=== PATIENT | female | born 1995 | race Caucasian/White ===

== ENCOUNTER 2020-04-16 07:06 | Day surgery (SDC) | payer BC ==
[~2020-04-16 07:06] MED LIST: Lactated Ringers 1,000 ML IV SCH; Lidocaine 1%/Sod Bicarbonate in NS 8.4% 1 ML Syringe IDERM PRN; Sodium Chloride 0.9% 10 ML Syringe FLUSH PRN
[2020-04-16] MEDS ORDERED: Lidocaine 1% with EPINEPHrine 1:100,000 20 ML MDV ONE (07:14)
[2020-04-16] MEDS ORDERED: Clindamycin Phosphate in D5W 900 MG in Premix Bag 1 BAG IV ONE ×2 (07:30)
[2020-04-16] MEDS ORDERED: fentaNYL 100 MCG/2 ML SDV IVPUSH PRN (07:40)
[2020-04-16] MEDS ORDERED: Scopolamine 1.5 MG Transdermal Patch TRDERM ONE (07:40)
[2020-04-16] MEDS ORDERED: diphenhydrAMINE 50 MG/ML SDV IVPUSH PRN (07:40)
--- NOTE | 2020-04-16 07:40 | PCM.PREANE ---
Preanesthetic Assessment - Procedure Proposed Procedure: lap cholecystecomy - Anesthesia/Transfusion/Family Hx Anesthesia History: No Prior Anesthesia Family History of Anesthesia Reaction: No Transfusion History: No Prior Transfusion(s) Intubation History: Unknown - Review of Systems General: No Symptoms Pulmonary: No Symptoms Cardiovascular: No Symptoms Gastrointestinal: No Symptoms Neurological: No Symptoms Other: Reports: None - Physical Assessment NPO Status Date: 04/15/20 NPO Status Time: 22:00 Height: 1.6 m Weight: 67.6 kg Mental Status: Alert & Oriented x3 Airway Class: Mallampati = 2 Dentition: Reports: Normal Dentition (many crooked teeth ) Thyro-Mental Finger Breadths: 3 Mouth Opening Finger Breadths: 3 ROM/Head Extension: Full Lungs: Clear to Auscultation Cardiovascular: Regular Rate, Regular Rhythm - Allergies Allergies/Adverse Reactions: Allergies Allergy/AdvReac Type Severity Reaction Status Date / Time amoxicillin Allergy Rash Verified 04/15/20 14:25 - Blood Blood Available: No - Anesthesia Plan Pre-Op Medication Ordered: None - Acknowledgements Anesthesia Type Planned: General Anesthesia Pt an Appropriate Candidate for the Planned Anesthesia: Yes Alternatives and Risks of Anesthesia Discussed w Pt/Guardian: Yes Pt/Guardian Understands and Agrees with Anesthesia Plan: Yes PreAnesthesia Questionnaire - Past Health History Medical/Surgical History: Denies Medical/Surgical History HEENT History: Reports: Allergic Rhinitis, Impaired Vision Cardiovascular History: Reports: None Respiratory History: Reports: None Gastrointestinal History: Reports: None Genitourinary History: Reports: None Other OB/BYN History: in 2015, pelvic pain Musculoskeletal History: Reports: None Neurological History: Reports: None Psychiatric History: Reports: None Endocrine/Metabolic History: Reports: None Hematologic History: Reports: None Immunologic History: Reports: None Oncologic (Cancer) History: Reports: None Dermatologic History: Reports: None - Past Surgical History Head Surgeries/Procedures: Reports: None HEENT Surgical History: Reports: None Cardiovascular Surgical History: Reports: None Respiratory Surgical History: Reports: None GI Surgical History: Reports: None Female Surgical History: Reports: None Male Surgical History: Reports: None Endocrine Surgical History: Reports: None Neurological Surgical History: Reports: None Musculoskeletal Surgical History: Reports: None Oncologic Surgical History: Reports: None Dermatological Surgical History: Reports: None - SUBSTANCE USE Tobacco Use Status *Q: Current Every Day Tobacco User Days Per Week of Alcohol Use: 2 Number of Drinks Per Day: 3 Total Drinks Per Week: 6 Recreational Drug Use History: No - HOME MEDS Home Medications: Home Meds Cetirizine HCl [Zyrtec] 10 mg PO DAILY PRN 04/15/20 [History] Fexofenadine/Pseudoephedrine [Monica-D 24 Hour Tablet] 1 tab PO DAILY PRN 04/15/20 [History] Ibuprofen 200 - 400 mg PO Q6H PRN 04/15/20 [History] Loratadine [Claritin] 10 mg PO DAILY PRN 04/15/20 [History] Melatonin 10 mg PO BEDTIME 04/15/20 [History] - CURRENT (IN HOUSE) MEDS Current Meds: Current Medications Lactated Ringer's (Ringers, Lactated) 1,000 mls @ 125 mls/hr IV ASDIRECTED DIDIER Stop: 04/16/20 23:00 Clindamycin Phosphate 900 mg/ (Premix) 50 mls @ 100 mls/hr IV ONETIME ONE Stop: 04/16/20 07:59 Lidocaine/Sodium Bicarbonate (Buffered Lidocaine 1% In Ns 8.4%) 0.25 ml IDERM ONETIME PRN PRN Reason: Prior to IV Start Stop: 04/16/20 23:00 Sodium Chloride (Saline Flush) 10 ml FLUSH ASDIRECTED PRN PRN Reason: Keep Vein Open Stop: 04/16/20 23:00 Discontinued Medications Lidocaine/Epinephrine (Xylocaine 1% With Epinephrine 1:100,000) Confirm Administered Dose 20 ml .ROUTE .STK-MED ONE Stop: 04/16/20 07:15
[2020-04-16] MEDS ORDERED: Propofol 200 MG/20 ML SDV ONE (07:45)
[2020-04-16] MEDS ORDERED: fentaNYL 250 MCG/5 ML SDV ONE (07:45)
[2020-04-16] MEDS ORDERED: Ondansetron 4 MG/2 ML SDV ONE (07:46)
[2020-04-16] MEDS ORDERED: Ketorolac 30 MG/ML SDV ONE (07:46)
[2020-04-16] MEDS ORDERED: Dexamethasone 4 MG/ML 5 ML MDV ONE (07:46)
[2020-04-16] MEDS ORDERED: Lidocaine 1% 4 ML ONE (07:46)
[2020-04-16] MEDS ORDERED: Midazolam 1 MG/ML 2 ML SDV ONE (07:46)
[2020-04-16] MEDS ORDERED: Rocuronium 50 MG/5 ML Vial ONE (07:46)
[2020-04-16] MEDS ORDERED: Ketamine 500 mg/10 ML MDV ONE (08:29)
[2020-04-16] MEDS ORDERED: Lactated Ringers 1,000 ML ONE (08:48)
[2020-04-16] MEDS ORDERED: HYDROmorphone 0.5 MG/0.5 ML Syringe ONE (08:52)
--- NOTE | 2020-04-16 09:31 | PCM.PRNOTE ---
- Free Text/Narrative Note: Date: 04/16/2020 Operation: laparoscopic cholecystectomy Surgeon: Ezra Erickson MD Findings: chronic cholecystitis with multiple gallstones. Critical view of safety obtained. Detailed Report: The patient was taken to the operating room and placed in supine position. Timeout was performed, and general endotracheal anesthesia initiated. The abdomen was prepped and draped in usual sterile fashion. Veress needle was placed in the left upper quadrant and pneumoperitoneum was established. A bladed 5 mm trocar was then inserted at the inferior aspect of the umbilicus, and a 5 mm 30 degree laparoscope was inserted into the abdomen. The Veress insertion site was inspected and no inadvertent injury was noted. The needle was removed, and additional ports were placed under laparoscopic vision. 2 additional 5 mm ports were placed in the right upper quadrant, and a 12 mm port was placed in the subxiphoid region. The fundus of the gallbladder was grasped and retracted cephalad. The gallbladder was quite long, and there was noted chronic inflammation and omental adhesions. The infundibulum was identified and cleared, and retracted laterally with the surgeon's left hand. Hook monopolar energy was used to divide the gallbladder's visceral peritoneum overlying the infundibulum and cystic structures. Careful dissection ensued, until the cystic duct and artery were clearly identified and skeletonized. A critical view of safety was obtained. Hemolock clips were placed on the cystic duct and artery, and the structures were transected with laparoscopic scissors. Monopolar energy was then used to dissect the gallbladder off of the liver. There was some bleeding from the edge of the liver near the fundus of the gallbladder, which was controlled with monopolar energy. The gallbladder was then placed in an Endo Catch bag and removed. The dissection field was irrigated and suctioned, and bleeding was controlled with monopolar energy. A piece of Surgicel was also placed in the gallbladder fossa, and hemostasis appeared satisfactory at this point. The 12 mm port site was closed using the laparoscopic suture passer with 0 Vicryl. Other ports were removed under laparoscopic vision, and pneumoperitoneum was released. All incision sites were closed at the level of skin with running subcuticular Vicryl suture. Wounds were dressed with Dermabond. The patient tolerated the procedure well.
--- NOTE | 2020-04-16 09:40 | PCM.POSTAN ---
POST ANESTHESIA ASSESSMENT - MENTAL STATUS Mental Status: Other - VITAL SIGNS Vital Signs: Last Vital Signs 0932 142/86 100, 2 L 84 18 97.5 Temp 36.2 C 04/16/20 07:00 Pulse 90 04/16/20 07:00 Resp 16 04/16/20 07:00 BP 132/96 H 04/16/20 07:00 Pulse Ox 97 04/16/20 07:00 - RESPIRATORY Respiratory Status: Respiratory Rate WNL, Airway Patent, O2 Saturation Stable, Supplemental Oxygen - CARDIOVASCULAR CV Status: Pulse Rate WNL, Blood Pressure Stable - GASTROINTESTINAL GI Status: No Symptoms - PAIN Pain Score: 0 - POST OP HYDRATION Hydration Status: Adequate & Stable
[2020-04-16] MEDS ORDERED: Promethazine 6.25 MG in Sodium Chloride 0.9% 9 ML IV STA (09:43)
[2020-04-16] MEDS ORDERED: Promethazine 25 MG/ML SDV IV ONE (10:00)
--- NOTE | 2020-04-16 11:32 | PCM48HPAN ---
Post Anesthesia Note - EVALUATION WITHIN 48HRS OF ANESTHETIC Vital Signs in Normal Range: Yes Patient Participated in Evaluation: Yes Respiratory Function Stable: Yes Airway Patent: Yes Cardiovascular Function Stable: Yes Hydration Status Stable: Yes Pain Control Satisfactory: Yes Nausea and Vomiting Control Satisfactory: Yes Mental Status Recovered: Yes Vital Signs: Last Vital Signs Temp 36.6 C 04/16/20 11:00 Pulse 90 04/16/20 11:00 Resp 18 04/16/20 11:00 BP 133/92 H 04/16/20 11:00 Pulse Ox 96 04/16/20 11:00
== END 2020-04-16 12:28 | disposition home or self-care (01) ==
LOC: JD.SDS 07:06 → MERGE 07:06 → JD.SDS 12:28
PROVIDERS: ATTEND Surgery
DX: K80.10 Calculus of gallbladder with chronic cholecystitis without obstruction (principal); F17.210 Nicotine dependence, cigarettes, uncomplicated; Z88.1 Allergy status to other antibiotic agents; Z79.899 Other long term (current) drug therapy; Z01.812 Encounter for preprocedural laboratory examination; Z20.828 Contact with and (suspected) exposure to other viral communicable diseases
CPT/HCPCS: 47562; 81025; A9270; J1100; J2001; J2250; J2405; J2550; J2704; J2710; J3010; J3490; J7120; J1170; J1885

== ENCOUNTER 2020-05-27 16:25 | Emergency (ER) | payer BC ==
[2020-05-27] MEDS ORDERED: LORazepam 1 MG Tab PO ONE (16:47)
--- NOTE | 2020-05-27 16:51 | EDM.PDOC ---
ED HPI GENERAL MEDICAL PROBLEM - General Chief Complaint: Behavioral/Psych Stated Complaint: [facility] Time Seen by Provider: 05/27/20 16:30 Source of Information: Reports: Patient History Limitations: Reports: No Limitations, Other (ED vital signs reveal a temp of 98.4, pulse of 85, respiratory rate of 18, blood pressure 128/75, pulse ox 99% on room air.) - History of Present Illness INITIAL COMMENTS - FREE TEXT/NARRATIVE: 24-year-old female presents to the emergency department complaints of dyspnea. Patient states that this has been ongoing for the last couple of weeks. She states she will feel short of breath and feeling like she needs to pass out specifically when she is driving. Patient states when she is at home and she feels this way she will lay on the bathroom floor and try to talk herself out of feeling that way. She states that recently her grandma was diagnosed with terminal cancer, and she has been unhappy with life in general as she states she has a "shitty "job. She states that she attempts to take melatonin 10 mg for sleep however that does not work so she drinks half of a bottle of 750 mL of vodka nightly. She reports that this has been going on for the past several months. She drinks to the point of blacking out. She states she has not had much of an appetite and she feels tired during the day. No significant medical history other than recent laparoscopic cholecystectomy 16 April. Denies any recent fever, chills, vomiting, or diarrhea. - Related Data Allergies Allergy/AdvReac Type Severity Reaction Status Date / Time amoxicillin Allergy Rash Verified 05/27/20 16:32 Home Meds: Home Meds Cetirizine HCl [Zyrtec] 10 mg PO DAILY PRN 04/15/20 [History] Fexofenadine/Pseudoephedrine [Monica-D 24 Hour Tablet] 1 tab PO DAILY PRN 04/15/20 [History] Ibuprofen 200 - 400 mg PO Q6H PRN 04/15/20 [History] Loratadine [Claritin] 10 mg PO DAILY PRN 04/15/20 [History] Melatonin 10 mg PO BEDTIME 04/15/20 [History] oxyCODONE 5 mg PO Q4H PRN #20 tab 04/16/20 [Rx] Magnesium Oxide 400 mg PO DAILY #10 tablet 05/27/20 [Rx] Past Medical History - Past Health History Medical/Surgical History: Denies Medical/Surgical History HEENT History: Reports: Allergic Rhinitis, Impaired Vision Cardiovascular History: Reports: None Respiratory History: Reports: None Gastrointestinal History: Reports: None Genitourinary History: Reports: None Other [employer] History: in 2015, pelvic pain Musculoskeletal History: Reports: None Neurological History: Reports: None Psychiatric History: Reports: None Endocrine/Metabolic History: Reports: None Hematologic History: Reports: None Immunologic History: Reports: None Oncologic (Cancer) History: Reports: None Dermatologic History: Reports: None - Past Surgical History Head Surgeries/Procedures: Reports: None HEENT Surgical History: Reports: None Cardiovascular Surgical History: Reports: None Respiratory Surgical History: Reports: None GI Surgical History: Reports: Cholecystectomy Female Surgical History: Reports: None Endocrine Surgical History: Reports: None Neurological Surgical History: Reports: None Musculoskeletal Surgical History: Reports: None Oncologic Surgical History: Reports: None Dermatological Surgical History: Reports: None Social & Family History - Family History Family Medical History: No Pertinent Family History - Tobacco Use Tobacco Use Status *Q: Current Every Day Tobacco User Years of Tobacco use: 5 Packs/Tins Daily: 0.5 - Caffeine Use Caffeine Use: Reports: Coffee, Energy Drinks, Soda, Tea - Recreational Drug Use Recreational Drug Use: No ED ROS GENERAL - Review of Systems Review Of Systems: Comprehensive ROS is negative, except as noted in HPI. ED EXAM, GENERAL - Physical Exam Exam: See Below Exam Limited By: No Limitations General Appearance: Alert, WD/WN, Anxious Eye Exam: Bilateral Eye: PERRL Ears: Hearing Grossly Normal Nose: Normal Inspection Throat/Mouth: Normal Inspection, Normal Voice, No Airway Compromise Head: Atraumatic, Normocephalic Neck: Normal Inspection, Supple, Non-Tender, Full Range of Motion Respiratory/Chest: No Respiratory Distress, Lungs Clear, Normal Breath Sounds, No Accessory Muscle Use, Chest Non-Tender Cardiovascular: Normal Peripheral Pulses, Regular Rate, Rhythm, No Edema, No Murmur Peripheral Pulses: 2+: Radial (L), Radial (R) GI/Abdominal: Normal Bowel Sounds, Soft, Non-Tender, No Distention (Female) Exam: Deferred Rectal (Female) Exam: Deferred Back Exam: Normal Inspection, Full Range of Motion Extremities: Normal Inspection, Normal Range of Motion, Non-Tender, No Pedal Edema, Normal Capillary Refill Neurological: Alert, Oriented, Normal Cognition Psychiatric: Anxious Skin Exam: Warm, Dry, Intact, Normal Color, No Rash Lymphatic: No Adenopathy #1 Interpretation EKG Date: 05/27/20 Time: 17:11 Rhythm: NSR Rate (Beats/Min): 91 Venus: Normal P-Wave: Present QRS: Normal ST-T: Normal QT: Normal (Per Dr. Dyer interpretation: Normal sinus rhythm) Course - Vital Signs Text/Narrative:: 24 old female presenting to the ER with complaints of shortness of breath. She states this has been ongoing for several weeks where she develops shortness of breath and feeling like she needs to pass out. She also becomes nauseated with this feeling. Denies complaints of numbness or tingling into her hands. Has not been sleeping well and has been using vodka, one half of a 750 mL bottle, per night until she blacks out and is able to sleep. Does admit to a little bit of increased stress in her life as her grandma was just diagnosed with terminal cancer and she has been unhappy with her job. Upon assessment patient is visibly anxious and dyspneic. I have ordered for the patient to have a milligram of Ativan p.o. I have also ordered a chest x-ray, EKG, troponin, CBC, CMP, magnesium level, and a TSH level. Last Recorded V/S: Last Vital Signs Temp 98.4 F 05/27/20 16:30 Pulse 85 05/27/20 16:30 Resp 18 05/27/20 16:30 BP 128/75 05/27/20 16:30 Pulse Ox 99 05/27/20 16:30 - Orders/Labs/Meds Orders: Active Orders 24 hr Category Date Time Status EKG Documentation Completion [RC] STAT Care 05/27/20 16:46 Active Chest 1V Frontal [CR] Stat Exams 05/27/20 16:46 Taken UA RFX WANDER AND CULT IF INDIC [URIN] Stat Lab 05/27/20 16:46 Ordered Labs: Laboratory Tests 05/27/20 05/27/20 Range/Units 17:05 17:05 WBC 7.42 (3.98-10.04) K/mm3 RBC 4.78 (3.98-5.22) M/mm3 Hgb 12.9 (11.2-15.7) gm/dl Hct 40.6 (34.1-44.9) % MCV 84.9 (79.4-94.8) fl MCH 27.0 (25.6-32.2) pg MCHC 31.8 L (32.2-35.5) g/dl RDW Std Deviation 42.7 (36.4-46.3) fL Plt Count 312 (182-369) K/mm3 MPV 9.5 (9.4-12.3) fl Neut % (Auto) 56.4 (34.0-71.1) % Lymph % (Auto) 30.2 (19.3-51.7) % Emery % (Auto) 8.8 (4.7-12.5) % Eos % (Auto) 4.0 (0.7-5.8) Baso % (Auto) 0.5 (0.1-1.2) % Neut # (Auto) 4.18 (1.56-6.13) K/mm3 Lymph # (Auto) 2.24 (1.18-3.74) K/mm3 Emery # (Auto) 0.65 H (0.24-0.36) K/mm3 Eos # (Auto) 0.30 (0.04-0.36) K/mm3 Baso # (Auto) 0.04 (0.01-0.08) K/mm3 Sodium 140 (136-145) mEq/L Potassium 3.4 L (3.5-5.1) mEq/L Chloride 101 (98-107) mEq/L Carbon Dioxide 19 L (21-32) mEq/L Anion Gap 23.4 H (5-15) BUN 9 (7-18) mg/dL Creatinine 0.8 (0.55-1.02) mg/dL Est Cr Clr Drug Dosing 90.47 mL/min Estimated GFR (MDRD) > 60 (>60) mL/min BUN/Creatinine Ratio 11.3 L (14-18) Glucose 114 H (74-106) mg/dL Calcium 10.0 (8.5-10.1) mg/dL Magnesium 1.4 L (1.8-2.4) mg/dl Total Bilirubin 0.3 (0.2-1.0) mg/dL AST 18 (15-37) U/L ALT 24 (14-59) U/L Alkaline Phosphatase 89 (46-116) U/L Troponin I < 0.017 (0.00-0.056) ng/mL C-Reactive Protein 0.2 (<1.0) mg/dL Total Protein 8.4 H (6.4-8.2) g/dl Albumin 4.3 (3.4-5.0) g/dl Globulin 4.1 gm/dL Albumin/Globulin Ratio 1.1 (1-2) TSH 3rd Generation 0.813 (0.358-3.74) uIU/mL Meds: Medications Discontinued Medications Generic Name Dose Route Start Last Admin Trade Name Freq PRN Reason Stop Dose Admin Lorazepam 1 mg 05/27/20 16:47 05/27/20 17:13 Ativan PO 05/27/20 16:48 1 mg ONETIME ONE Administration Magnesium Oxide 800 mg 05/27/20 17:59 Magnesium Oxide PO 05/27/20 18:00 ONETIME ONE - Re-Assessments/Exams Free Text/Narrative Re-Assessment/Exam: 05/27/20 18:01 CBC is unremarkable, chemistry reveals a potassium of 3.4, carbon dioxide 19, anion gap is elevated at 23.4 however patient is not nauseated or vomiting and has been drinking large quantities of alcohol, glucose is 114, magnesium is 1.4, troponin less than 0.017, C-reactive protein 8.2, TSH 0.813 Patient states she is feeling less anxious from the Ativan, however I do not feel comfortable sending her home with a prescription for Ativan as I am not con vinced that she will stop drinking. I have ordered for the patient to receive 800 mg of magnesium p.o. x1 now. The patient will be discharged home with recommendations that she follows up with [facility] and la[facility]. She also needs to schedule an appointment with her primary care physician this week. Departure - Departure Time of Disposition: 18:02 Disposition: Home, Self-Care 01 Condition: Fair Clinical Impression: Anxiety, Alcohol abuse - Discharge Information Prescriptions: Magnesium Oxide 400 mg PO DAILY #10 tablet Instructions: Alcohol Use Disorder, Alcohol Abuse and Nutrition, Managing Anxiety, Adult, Finding Treatment for Addiction Referrals: PCP,None [Primary Care Provider] - Forms: ED Department Discharge Additional Instructions: You were seen in the emergency department today with complaints of shortness of breath and anxiety type symptoms. A chest x-ray, an EKG and lab work were all completed and we have ruled out any cardiac origin for your shortness of breath. Your thyroid levels are normal. You were slightly dehydrated so you need to drink more water. Medium level was low so you were given magnesium tablets to supplement. I have also sent prescription to your pharmacy for magnesium tablets. You need to take 2 tablets daily for the next 3 days and then 1 tablet until gone. Stop drinking alcohol as this only contributes to your anxiety, sleep problems, dehydration and low magnesium levels. [facility] The phone number is [phone]. Also recommend you join Alcoholics Anonymous. You also need to follow-up with your primary care provider. A list of providers has been sent with your discharge information. Schedule an appointment as soon as possible. Should your condition worsen or change please return to the emergency department. Sepsis Event Note (ED) - Evaluation Sepsis Screening Result: No Definite Risk - Focused Exam Vital Signs: Vital Signs Temp Pulse Resp BP Pulse Ox 05/27/20 16:30 98.4 F 85 18 128/75 99 - My Orders Last 24 Hours: My Active Orders 05/27/20 16:46 EKG Documentation Completion [RC] STAT Chest 1V Frontal [CR] Stat UA RFX WANDER AND CULT IF INDIC [URIN] Stat - Assessment/Plan Last 24 Hours: My Active Orders 05/27/20 16:46 EKG Documentation Completion [RC] STAT Chest 1V Frontal [CR] Stat UA RFX WANDER AND CULT IF INDIC [URIN] Stat
[2020-05-27] MEDS ORDERED: Magnesium Oxide 400 MG Tab PO ONE (17:59)
--- NOTE | 2020-05-27 18:09 | CR ---
Chest: Portable view of the chest was obtained. Comparison: No previous chest imaging. Heart size and mediastinum are normal. Lungs are clear with no acute parenchymal change. Bony structures are grossly intact. Impression: 1. Nothing acute is appreciated on portable chest x-ray. Diagnostic code #1
== END 2020-05-27 18:36 | disposition home or self-care (01) ==
LOC: JD.ED 16:25
DX: F41.9 Anxiety disorder, unspecified (principal); F10.10 Alcohol abuse, uncomplicated; Z72.0 Tobacco use; Z88.0 Allergy status to penicillin
CPT/HCPCS: 36415; 71045; 80053; 83735; 84443; 84484; 85025; 86140; 93005; 99285; A9270; 93010; 99284

== ENCOUNTER 2020-10-15 16:43 | Emergency (ER) | payer BC ==
--- NOTE | 2020-10-15 17:33 | EDM.PDOC ---
ED HPI GENERAL MEDICAL PROBLEM - General Chief Complaint: Abdominal Pain Stated Complaint: ABDOMINAL PAIN/DIZZY/LIGHTHEADED Time Seen by Provider: 10/15/20 17:20 Source of Information: Reports: Patient History Limitations: Reports: No Limitations - History of Present Illness INITIAL COMMENTS - FREE TEXT/NARRATIVE: 25 yo F presents with several symptoms. She states she's felt dizzy/lightheaded x 2 weeks. Feels like she could pass out but no syncope. Fairly constant, no exacerbating/relieving factors. No vomiting. She has had a couple of episodes of diarrhea daily. In addition, she has had some RUQ pain, sharp, x 3 days. It is better today. Hx cholecystectomy several months ago, had not had recurrence of pain until now. No fever. She has felt somewhat anxious/jittery, states her PCP told her it was anxiety, has been taking an occasional hydroxyzine which is no longer providing much relief. Anxious about her job, feels better now that she is planning to quit and has a new job lined up. States she has a safe living situation. Denies possibility of , is on menses now. Occasional ETOH use, not daily, no drug use. Right Upper Abdomen Pain Score (Numeric/FACES): 6 - Related Data Allergies Allergy/AdvReac Type Severity Reaction Status Date / Time amoxicillin Allergy Rash Verified 10/15/20 17:10 Home Meds: Home Meds Cetirizine HCl [Zyrtec] 10 mg PO ASDIRECTED PRN 04/15/20 [History] Fexofenadine/Pseudoephedrine [Monica-D 24 Hour Tablet] 1 tab PO DAILY PRN 04/15/20 [History] Ibuprofen 200 - 400 mg PO Q6H PRN 04/15/20 [History] Loratadine [Claritin] 10 mg PO DAILY PRN 04/15/20 [History] Melatonin 10 mg PO BEDTIME 04/15/20 [History] hydrOXYzine HCL [Hydroxyzine HCl] 50 mg PO ASDIRECTED 10/15/20 [History] Past Medical History - Past Health History Medical/Surgical History: Denies Medical/Surgical History HEENT History: Reports: Allergic Rhinitis, Impaired Vision Cardiovascular History: Reports: None Respiratory History: Reports: None Gastrointestinal History: Reports: None Genitourinary History: Reports: None Other DBA MANAGER History: in 2015, pelvic pain Musculoskeletal History: Reports: None Neurological History: Reports: None Psychiatric History: Reports: None Endocrine/Metabolic History: Reports: None Hematologic History: Reports: None Immunologic History: Reports: None Oncologic (Cancer) History: Reports: None Dermatologic History: Reports: None - Infectious Disease History Infectious Disease History: Reports: None - Past Surgical History Head Surgeries/Procedures: Reports: None HEENT Surgical History: Reports: None Cardiovascular Surgical History: Reports: None Respiratory Surgical History: Reports: None GI Surgical History: Reports: Cholecystectomy Female Surgical History: Reports: None Endocrine Surgical History: Reports: None Neurological Surgical History: Reports: None Musculoskeletal Surgical History: Reports: None Oncologic Surgical History: Reports: None Dermatological Surgical History: Reports: None Social & Family History - Family History Family Medical History: No Pertinent Family History - Tobacco Use Tobacco Use Status *Q: Current Every Day Tobacco User Years of Tobacco use: 6 Packs/Tins Daily: 0.5 - Caffeine Use Caffeine Use: Reports: Soda - Recreational Drug Use Recreational Drug Use: No ED ROS GENERAL - Review of Systems Review Of Systems: See Below Constitutional: Denies: Fever HEENT: Reports: No Symptoms Respiratory: Denies: Shortness of Breath Cardiovascular: Denies: Chest Pain Endocrine: Reports: Fatigue GI/Abdominal: Reports: Abdominal Pain. Denies: Vomiting : Reports: No Symptoms Musculoskeletal: Reports: No Symptoms Skin: Reports: No Symptoms Neurological: Reports: Dizziness Psychiatric: Reports: Anxiety Hematologic/Lymphatic: Reports: No Symptoms Immunologic: Reports: No Symptoms ED EXAM, GENERAL - Physical Exam Exam: See Below Exam Limited By: No Limitations General Appearance: Alert, WD/WN, No Apparent Distress Eye Exam: Bilateral Eye: Normal Inspection Ears: Normal External Exam Nose: Normal Inspection Throat/Mouth: Normal Inspection, Normal Oropharynx, Normal Voice Head: Atraumatic, Normocephalic Neck: Normal Inspection, Supple, Non-Tender Respiratory/Chest: No Respiratory Distress, Lungs Clear, Normal Breath Sounds, Chest Non-Tender Cardiovascular: Normal Peripheral Pulses, Regular Rate, Rhythm, No Edema GI/Abdominal: Soft, Non-Tender Back Exam: Normal Inspection Extremities: Normal Inspection, Normal Range of Motion, No Pedal Edema Neurological: Alert, Oriented, CN II-XII Intact, Normal Cognition, No Motor/Sensory Deficits Psychiatric: Normal Affect, Normal Mood Skin Exam: Warm, Dry, Intact, Normal Color, No Rash Course - Vital Signs Last Recorded V/S: Last Vital Signs Temp 36.6 C 10/15/20 17:16 Pulse 89 10/15/20 17:16 Resp 18 10/15/20 17:16 BP 143/92 H 10/15/20 17:16 Pulse Ox 100 10/15/20 17:16 - Orders/Labs/Meds Orders: Active Orders 24 hr Category Date Time Status EKG 12 Lead [EKG Documentation Completion] [RC] STAT Care 10/15/20 17:32 Active Labs: Laboratory Tests 10/15/20 10/15/20 Range/Units 17:40 17:40 WBC 8.11 (3.98-10.04) K/mm3 RBC 4.36 (3.98-5.22) M/mm3 Hgb 11.9 (11.2-15.7) gm/dl Hct 36.8 (34.1-44.9) % MCV 84.4 (79.4-94.8) fl MCH 27.3 (25.6-32.2) pg MCHC 32.3 (32.2-35.5) g/dl RDW Std Deviation 40.4 (36.4-46.3) fL Plt Count 271 (182-369) K/mm3 MPV 9.7 (9.4-12.3) fl Neut % (Auto) 64.7 (34.0-71.1) % Lymph % (Auto) 24.4 (19.3-51.7) % Bowie % (Auto) 6.7 (4.7-12.5) % Eos % (Auto) 3.5 (0.7-5.8) Baso % (Auto) 0.7 (0.1-1.2) % Neut # (Auto) 5.25 (1.56-6.13) K/mm3 Lymph # (Auto) 1.98 (1.18-3.74) K/mm3 Bowie # (Auto) 0.54 H (0.24-0.36) K/mm3 Eos # (Auto) 0.28 (0.04-0.36) K/mm3 Baso # (Auto) 0.06 (0.01-0.08) K/mm3 Sodium 140 (136-145) mEq/L Potassium 4.0 (3.5-5.1) mEq/L Chloride 103 (98-107) mEq/L Carbon Dioxide 24 (21-32) mEq/L Anion Gap 17.0 H (5-15) BUN 12 (7-18) mg/dL Creatinine 0.8 (0.55-1.02) mg/dL Est Cr Clr Drug Dosing 89.70 mL/min Estimated GFR (MDRD) > 60 (>60) mL/min BUN/Creatinine Ratio 15.0 (14-18) Glucose 102 H (70-99) mg/dL Calcium 9.2 (8.5-10.1) mg/dL Total Bilirubin 0.2 (0.2-1.0) mg/dL AST 15 (15-37) U/L ALT 21 (14-59) U/L Alkaline Phosphatase 74 (46-116) U/L Total Protein 7.8 (6.4-8.2) g/dl Albumin 3.9 (3.4-5.0) g/dl Globulin 3.9 gm/dL Albumin/Globulin Ratio 1.0 (1-2) Lipase 154 (73-393) U/L HCG, Quant < 1.0 mIU/mL - Re-Assessments/Exams Free Text/Narrative Re-Assessment/Exam: 10/15/20 18:33 EKG shows NSR, rate 87, normal axis/intervals, no evidence of acute ischemia or arrhythmia. Labs unremarkable - not , not anemic, LFT's/chem normal. Normal vitals here and well appearing. Advised her to f/u with PCP for further care. Discussed ED return precautions. Departure - Departure Time of Disposition: 18:34 Disposition: Home, Self-Care 01 Clinical Impression: Dizziness, Anxiety Abdominal pain Qualifiers: Abdominal location: right upper quadrant Qualified Code(s): R10.11 - Right upper quadrant pain - Discharge Information Forms: ED Department Discharge Additional Instructions: 1. Follow up with your regular doctor as soon as possible 2. Return to the ED as needed if you have worsening pain, passing out episodes, severe dizziness, fever, difficulty breathing, or other concerning symptoms Sepsis Event Note (ED) - Evaluation Sepsis Screening Result: No Definite Risk - Focused Exam Vital Signs: Vital Signs Temp Pulse Resp BP Pulse Ox 10/15/20 17:16 36.6 C 89 18 143/92 H 100 - My Orders Last 24 Hours: My Active Orders 10/15/20 17:32 EKG 12 Lead [EKG Documentation Completion] [RC] STAT - Assessment/Plan Last 24 Hours: My Active Orders 10/15/20 17:32 EKG 12 Lead [EKG Documentation Completion] [RC] STAT
== END 2020-10-15 18:50 | disposition home or self-care (01) ==
LOC: JD.ED 16:43
DX: R10.11 Right upper quadrant pain (principal); R42 Dizziness and giddiness; F41.9 Anxiety disorder, unspecified; Z72.0 Tobacco use; Z88.0 Allergy status to penicillin
CPT/HCPCS: 36415; 80053; 83690; 84702; 85025; 99283; 99284-25

== ENCOUNTER 2021-04-30 18:14 | Emergency (ER) | payer BC ==
[2021-04-30] MEDS ORDERED: Sodium Chloride 0.9% 10 ML Syringe FLUSH PRN (18:56)
[2021-04-30] MEDS ORDERED: Dicyclomine 10 MG Cap PO ONE (19:08)
[2021-04-30] MEDS ORDERED: Magnesium Citrate Solution 296 ML Bottle PO ONE (20:06)
== END 2021-04-30 20:28 | disposition home or self-care (01) ==
LOC: JD.ED 18:14
DX: K59.09 Other constipation (principal); Z88.0 Allergy status to penicillin; Z72.0 Tobacco use
CPT/HCPCS: 36415; 74019; 80053; 81001; 85025; 86140; 99284; A9270

== ENCOUNTER 2022-03-02 09:25 | Emergency (ER) | payer BC | END 2022-03-02 10:30 | disposition left against medical advice (07) | LOC: JD.ED 09:25 | DX: Z53.21 Procedure and treatment not carried out due to patient leaving prior to being seen by health care provider (principal) ==

== ENCOUNTER 2022-03-02 10:52 | Emergency (ER) | payer BC | END 2022-03-02 13:02 | LOC: JD.ED 10:52 | DX: Z53.21 Procedure and treatment not carried out due to patient leaving prior to being seen by health care provider (principal) ==

== ENCOUNTER 2023-01-09 18:09 | Emergency (ER) | payer BC ==
[2023-01-09] MEDS ORDERED: Sodium Chloride 0.9% 1,000 ML IV ONE ×2 (18:33→19:40)
[2023-01-09] MEDS ORDERED: Metoclopramide 10 MG/2 ML SDV IVPUSH ONE (18:33)
[2023-01-09] MEDS ORDERED: Sodium Chloride 0.9% 10 ML Syringe FLUSH PRN (18:33)
[2023-01-09 18:57] LABS: BASOPHILS ABSOLUTE AUTO 0.1 K/mm3 (0.0-0.2); BASOPHILS PERCENT AUTO 0.7 % (0.0-1.0); EOSINOPHILS ABSOLUTE AUTO 0.1 K/mm3 (0.0-0.4); EOSINOPHILS PERCENT AUTO 1.7 % (0.0-6.0); HEMOGLOBIN 11.8 gm/dl (12.0-16.0); IMMATURE GRAN ABSOLUTE AUTO 0.02 K/mm3 (0.00-0.05); IMMATURE GRAN PERCENT AUTO 0.2 % (0.0-0.4); LYMPHOCYTES ABSOLUTE AUTO 1.5 K/mm3 (1.0-4.8); LYMPHOCYTES PERCENT AUTO 18.1 % (24.0-44.0); MEAN CORPUSCULAR HEMOGLOBIN 26.6 pg (28.0-32.0); MEAN CORPUSCULAR HGB CONC 32.8 g/dl (32.0-36.0); MEAN CORPUSCULAR VOLUME 81.3 fl (83.0-99.0); MONOCYTES ABSOLUTE AUTO 0.6 K/mm3 (0.0-0.8); MONOCYTES PERCENT AUTO 7.1 % (0.0-8.0); NEUTROPHILS ABSOLUTE AUTO 5.9 K/mm3 (1.8-7.7); NEUTROPHILS PERCENT AUTO 72.2 % (41.0-71.0); PLATELET COUNT,PLT 244 K/mm3 (150-400); RED BLOOD CELL COUNT 4.43 M/mm3 (4.10-5.30); WHITE BLOOD CELL COUNT,WBC 8.22 K/mm3 (3.9-11.3)
[2023-01-09 19:18] LABS: ALBUMIN 4.4 g/dl (3.4-5.0); MAGNESIUM 1.7 mg/dL (1.8-2.4); POTASSIUM,K 3.6 mEq/L (3.5-5.1)
[2023-01-09] MEDS ORDERED: levETIRAcetam 500 MG in Sodium Chloride 0.9% 100 ML IV ONE (19:40)
[2023-01-09 19:41] LABS: A/G RATIO 0.9 (1-2); ANION GAP 18.6 (5-15); CALCIUM 9.5 mg/dL (8.5-10.1); CREATININE 0.8 mg/dL (0.55-1.02); EST CRCL DRUG DOSING (CG) 88.15 mL/min; PROTEIN TOTAL,TP 9.1 g/dl (6.4-8.2); TSH 1.654 uIU/mL (0.358-3.74)
[2023-01-09] MEDS ORDERED: Magnesium Sulfate/Water 2 GM in Premix Bag 1 BAG IV ONE (20:03)
[2023-01-09 20:30] LABS: APPEARANCE,URINE CLEAR (Clear); BILIRUBIN,URINE NEGATIVE (Negative); COLOR,URINE DARK YELLOW (Yellow); GLUCOSE,URINE NEGATIVE (Negative); KETONES,URINE 2+ (Negative); LEUKOCYTE ESTERASE,URINE NEGATIVE (Negative); NITRITE,URINE NEGATIVE (Negative); OCCULT BLOOD,URINE NEGATIVE (Negative); PH,URINE 7.5 (5.0-8.0); PROTEIN,URINE 2+ (Negative); UROBILINOGEN,URINE 0.2 (0.2-1.0)
[2023-01-09 20:38] LABS: BACTERIA,URINE MODERATE /hpf (FEW); RBC,URINE 0-5 /hpf (0-5); WBC,URINE 0-5 /hpf (0-5)
[2023-01-09 20:39] LABS: AMORPHOUS SEDIMENT,URINE FEW /hpf (NOT SEEN); BARBITURATE SCREEN,URINE NEGATIVE (CUTOFF=200); BENZODIAZEPINES SCREEN,URINE NEGATIVE (CUTOFF=150); BUPRENORPHINE SCREEN,URINE NEGATIVE (CUTOFF=10); METHADONE SCREEN, URINE NEGATIVE (CUTOFF=200); METHAMPHETAMINES SCREEN, URINE NEGATIVE (CUTOFF=500); MUCUS,URINE MODERATE /hpf (FEW); OXYCODONE SCREEN,URINE NEGATIVE (CUT0FF=100); PROPOXYPHENE SCREEN,URINE NEGATIVE (CUTOFF=300); THC SCREEN,URINE 20 NG/ML NEGATIVE (CUTOFF=50)
[2023-01-09 20:41] LABS: AMPHETAMINES SCREEN, URINE NEGATIVE (CUTOFF=500)
== END 2023-01-09 23:32 | disposition home or self-care (01) ==
LOC: JD.ED 18:09
DX: R56.9 Unspecified convulsions (principal); F10.10 Alcohol abuse, uncomplicated; E83.42 Hypomagnesemia; Z86.16 Personal history of COVID-19; Z79.899 Other long term (current) drug therapy; Z88.1 Allergy status to other antibiotic agents
CPT/HCPCS: 36415; 70450; 80053; 80143; 80179; 80306; 80307; 81001; 81025; 83605; 83735; 84443; 85025; 96361; 96365; 96366; 96367; 96375; 99285; J1953; J2765; J3475; J3490; J7030; 99284

== ENCOUNTER 2024-02-28 10:32 | Emergency (ER) | payer SELFPAY ==
[2024-02-28 11:18] LABS: APPEARANCE,URINE SLT CLOUDY (Clear); BILIRUBIN,URINE NEGATIVE (Negative); COLOR,URINE YELLOW (Yellow); GLUCOSE,URINE NEGATIVE (Negative); KETONES,URINE NEGATIVE (Negative); LEUKOCYTE ESTERASE,URINE NEGATIVE (Negative); NITRITE,URINE NEGATIVE (Negative); OCCULT BLOOD,URINE NEGATIVE (Negative); PROTEIN,URINE NEGATIVE (Negative); UROBILINOGEN,URINE 0.2 (0.2-1.0)
[2024-02-28 11:27] LABS: BASOPHILS ABSOLUTE AUTO 0.1 K/mm3 (0.0-0.2); BASOPHILS PERCENT AUTO 0.6 % (0.0-1.0); EOSINOPHILS ABSOLUTE AUTO 0.3 K/mm3 (0.0-0.4); EOSINOPHILS PERCENT AUTO 3.2 % (0.0-6.0); HEMATOCRIT 33.2 % (37.0-47.0); HEMOGLOBIN 10.4 gm/dl (12.0-16.0); IMMATURE GRAN ABSOLUTE AUTO 0.04 K/mm3 (0.00-0.05); IMMATURE GRAN PERCENT AUTO 0.4 % (0.0-0.4); LYMPHOCYTES ABSOLUTE AUTO 2.4 K/mm3 (1.0-4.8); LYMPHOCYTES PERCENT AUTO 24.3 % (24.0-44.0); MEAN CORPUSCULAR HEMOGLOBIN 24.9 pg (28.0-32.0); MEAN CORPUSCULAR HGB CONC 31.3 g/dl (32.0-36.0); MEAN CORPUSCULAR VOLUME 79.4 fl (83.0-99.0); MEAN PLATELET VOLUME 9.6 fl (9.4-12.3); MONOCYTES ABSOLUTE AUTO 0.6 K/mm3 (0.0-0.8); MONOCYTES PERCENT AUTO 5.8 % (0.0-8.0); NEUTROPHILS ABSOLUTE AUTO 6.4 K/mm3 (1.8-7.7); NEUTROPHILS PERCENT AUTO 65.7 % (41.0-71.0); PLATELET COUNT,PLT 240 K/mm3 (150-400); RED BLOOD CELL COUNT 4.18 M/mm3 (4.10-5.30); WHITE BLOOD CELL COUNT,WBC 9.76 K/mm3 (3.9-11.3)
[2024-02-28 11:44] LABS: LACTIC ACID 1.1 mmol/L (0.4-2.0)
[2024-02-28 11:50] LABS: ALBUMIN 3.8 g/dl (3.4-5.0); ANION GAP 15.6 (5-15); BILIRUBIN TOTAL 0.2 mg/dL (0.2-1.0); BUN/CREATININE RATIO 18.6 (14-18); C-REACTIVE PROTEIN 0.22 mg/dL (<0.30); CALCIUM 8.4 mg/dL (8.5-10.1); CREATININE 0.7 mg/dL (0.55-1.02); EST CRCL DRUG DOSING (CG) 99.86 mL/min; POTASSIUM,K 3.6 mEq/L (3.5-5.1); PROTEIN TOTAL,TP 7.7 g/dl (6.4-8.2)
[2024-02-28] MEDS: Magnesium Citrate Solution 296 ML Bottle PO ONE (12:54)
== END 2024-02-28 13:00 | disposition home or self-care (01) ==
LOC: JD.ED 10:32
DX: K59.09 Other constipation (principal); D50.9 Iron deficiency anemia, unspecified; Z79.899 Other long term (current) drug therapy; Z86.16 Personal history of COVID-19; Z88.0 Allergy status to penicillin
CPT/HCPCS: 36415; 74018; 74018-26; 80053; 81003; 81025; 83605; 85025; 86140; 99284; A9270-GY